=== PATIENT | female | born 1955 | race Caucasian/White ===

== ENCOUNTER → 2020-12-25 | Outpatient (CLI) | payer MEDICARE | END | disposition home or self-care (01) | LOC: RAD 09:55 | PROVIDERS: ATTEND Nurse Practitioner Family | DX: R09.1 Pleurisy (principal) ==

== ENCOUNTER 2022-01-26 13:02 | Emergency (ER) | payer MEDICARE ==
[~2022-01-26] VITALS: Ht 149.8 cm; Wt 45.4 kg
[2022-01-27] MEDS ORDERED: IBU800 M1 PO (11:34)
[2022-01-27] MEDS ORDERED: ASPIRIN81 M1 PO (11:34)
[2022-01-27] MEDS ORDERED: B COMPLEX1 EACH PO (11:35)
[2022-01-27] MEDS ORDERED: VITAMIN C500 M4 PO (11:35)
[2022-01-27] MEDS ORDERED: VITAMIN D325 MCG PO (11:35)
[2022-01-27] MEDS ORDERED: GUMMI BEAR MUL1 EACH PO (11:36)
[2022-01-27] MEDS ORDERED: VITAMIN E100 UNI3 PO (11:36)
[2022-01-27] MEDS ORDERED: HYDROCODON-ACE1 EACH PO (16:21)
== END 2022-01-26 15:06 | disposition home or self-care (01) ==
LOC: ED 13:02
DX: S62.102A Fracture of unspecified carpal bone, left wrist, initial encounter for closed fracture (principal); W01.0XXA Fall on same level from slipping, tripping and stumbling without subsequent striking against object, initial encounter; Y93.89 Activity, other specified; Y92.89 Other specified places as the place of occurrence of the external cause; Y99.8 Other external cause status

== ENCOUNTER → 2022-01-27 | Day surgery (SDC) | payer MEDICARE ==
[~2022-01-27] VITALS: Ht 149.8 cm; Wt 45.4 kg
[~2022-01-27] MED LIST: ASPIRIN81 M1 PO; B COMPLEX1 EACH PO; GUMMI BEAR MUL1 EACH PO; HYDROCODON-ACE1 EACH PO; IBU800 M1 PO; VITAMIN C500 M4 PO; VITAMIN D325 MCG PO; VITAMIN E100 UNI3 PO
[2022-01-27 12:05] LABS: BASO % 0.3 % (0.0-1.0); EOS # 0.1 10*3/uL (0.0-0.4); EOS % 0.8 % (1.0-4.0); HEMATOCRIT 40.3 % (37.0-47.0); LYMPH # 2.3 10*3/uL (1.3-4.4); LYMPH % 24.8 % (27.0-41.0); MEAN CELL VOLUME 92.9 fl (81.0-99.0); MEAN CORPUSCULAR HGB 30.4 pg (27.0-31.0); MEAN CORPUSCULAR HGB CONC 32.8 g/dl (33.0-37.0); MEAN PLATELET VOLUME 9.5 fl (9.6-12.3); MONO # 0.8 10*3/uL (0.1-1.0); PLATELET COUNT AUTOMATED 261 10*3/uL (130-400); RED BLOOD COUNT 4.34 10*6/uL (4.10-5.10); RED CELL DISTRI WIDTH 13.1 % (0-14.5); WHITE BLOOD COUNT 9.3 10*3/uL (4.8-10.8)
[2022-01-27 12:26] LABS: BUN 11 mg/dl (7-24); CHLORIDE 113 mmol/L (98-107); CREATININE 0.76 mg/dL (0.55-1.02); POTASSIUM 3.5 mmol/L (3.5-5.1); SODIUM 141 mmol/L (136-145)
[2022-01-27 12:30] VITALS: BP 145/57
[2022-01-27 15:35] VITALS: BP 124/93
[2022-01-27 15:50] VITALS: BP 136/67
[2022-01-27 16:05] VITALS: BP 133/67
== END | disposition home or self-care (01) ==
LOC: SDC 11:15
PROVIDERS: ATTEND Orthopaedic Surgery
DX: S52.531A Colles' fracture of right radius, initial encounter for closed fracture (principal); M85.841 Other specified disorders of bone density and structure, right hand; E78.00 Pure hypercholesterolemia, unspecified; F17.210 Nicotine dependence, cigarettes, uncomplicated; W19.XXXA Unspecified fall, initial encounter; Y93.89 Activity, other specified; Y92.89 Other specified places as the place of occurrence of the external cause; Y99.8 Other external cause status

== ENCOUNTER → 2022-02-11 | Outpatient (CLI) | payer MEDICARE | END | disposition home or self-care (01) | LOC: ORTHO 08:06 | PROVIDERS: ATTEND Orthopaedic Surgery | DX: S52.531D Colles' fracture of right radius, subsequent encounter for closed fracture with routine healing (principal); X58.XXXD Exposure to other specified factors, subsequent encounter ==

== ENCOUNTER → 2022-03-10 | Outpatient (CLI) | payer MEDICARE | END | disposition home or self-care (01) | LOC: ORTHO 01:24 | PROVIDERS: ATTEND Orthopaedic Surgery | DX: S52.611D Displaced fracture of right ulna styloid process, subsequent encounter for closed fracture with routine healing (principal); S52.531D Colles' fracture of right radius, subsequent encounter for closed fracture with routine healing; X58.XXXD Exposure to other specified factors, subsequent encounter ==

== ENCOUNTER → 2022-03-19 | Outpatient (CLI) | payer MEDICARE | END | disposition home or self-care (01) | LOC: RAD 13:28 | PROVIDERS: ATTEND Orthopaedic Surgery | DX: M81.0 Age-related osteoporosis without current pathological fracture (principal) ==

== ENCOUNTER → 2022-04-23 | Outpatient (CLI) | payer MEDICARE | END | disposition home or self-care (01) | LOC: ORTHO 00:11 | PROVIDERS: ATTEND Orthopaedic Surgery | DX: S52.531D Colles' fracture of right radius, subsequent encounter for closed fracture with routine healing (principal); X58.XXXD Exposure to other specified factors, subsequent encounter ==